=== PATIENT | male | born 1945 | race Caucasian/White ===

== ENCOUNTER 2021-12-26 15:14 | Emergency (ER) | payer BC, MEDICARE ==
[~2021-12-26] VITALS: Ht 175.3 cm; Wt 88.6 kg
[2021-12-26 15:26] VITALS: TEMP 98.4
[2021-12-26 18:08] VITALS: BP 152/77; PULSE 76
== END 2021-12-26 18:20 | disposition home or self-care (01) ==
LOC: COL.ER 15:14
DX: S06.9X9A Unspecified intracranial injury with loss of consciousness of unspecified duration, initial encounter (principal); S01.111A Laceration without foreign body of right eyelid and periocular area, initial encounter; Z23 Encounter for immunization; W01.0XXA Fall on same level from slipping, tripping and stumbling without subsequent striking against object, initial encounter; Y93.02 Activity, running